=== PATIENT | female | born 1955 | race Caucasian/White ===

== ENCOUNTER 2017-04-24 14:50 | Outpatient (CLI) | payer OTHER ==
[2017-04-24 16:11] LABS: #Basophils 0.1 thou/uL (0.0-0.2); #Eosinphils 0.2 thou/uL (0.0-0.7); #Lymphocytes 3.2 thou/uL (1.20-3.40); #Monocytes 0.7 thou/uL (0.11-0.59); #Neutrophils 4.6 thou/uL (1.40-6.50); %Basophils 0.7 % (0.0-1.0); %Eosinophils 2.3 % (0.0-10.0); %Lymphocytes 36.4 % (21.0-51.0); %Monocytes 8.1 % (0.0-10.0); Mean Platelet Volume 6.8 fL (7.4-10.4); Red Blood Cell (RBC) Count 4.62 mill/uL (4.20-5.40); White Blood Cell (WBC) Count 8.7 thou/uL (4.8-10.8)
[2017-04-24 16:33] LABS: Anion Gap 12 mmol/L (10-20); BUN (Urea Nitrogen) 17 mg/dL (9.8-20.1); Calc. Creatinine Clearance 0 mL/min (70-130); Calcium 9.6 mg/dL (7.8-10.44); Carbon Dioxide 29 mmol/L (23-31); Chloride 102 mmol/L (98-107); Estimated GFR-MDRD 71
== END 2017-04-24 14:51 | disposition home or self-care (01) ==
LOC: LABBT 14:50
PROVIDERS: ATTEND Surgery
DX: Z01.812 Encounter for preprocedural laboratory examination (principal); K43.9 Ventral hernia without obstruction or gangrene
CPT/HCPCS: 80048; 85025

== ENCOUNTER 2017-04-24 16:39 | Outpatient (CLI) | payer OTHER | END 2017-04-24 16:40 | disposition home or self-care (01) | LOC: LABBT 16:39 | PROVIDERS: ATTEND Surgery | DX: Z01.812 Encounter for preprocedural laboratory examination (principal); K43.9 Ventral hernia without obstruction or gangrene ==

== ENCOUNTER 2017-04-26 09:02 | Day surgery (SDC) | payer OTHER ==
[2017-04-24 15:26] VITALS: BMI 25.6
[2017-04-26] MEDS ORDERED: Bupivacaine/Epinephrine 0.25% 30 ML VIAL ONE (10:36)
[2017-04-26] MEDS ORDERED: CEFAZOLIN/Water 2 GM/20 ML SYRINGE ONE (10:57)
[2017-04-26] MEDS ORDERED: Fentanyl 250 MCG/5 ML VIAL ONE (11:09)
[2017-04-26] MEDS ORDERED: PHENYLEPHRINE-NS 100 MCG/ML 10 ML SYRINGE ONE (11:31)
[2017-04-26] MEDS ORDERED: Ketorolac Tromethamine 30 MG/ML VIAL ONE (11:31)
[2017-04-26] MEDS ORDERED: Glycopyrrolate 0.2 MG/ML 5 ML SYRINGE ONE (11:31)
[2017-04-26] MEDS ORDERED: Propofol 200 MG/20 ML VIAL ONE (11:31)
[2017-04-26] MEDS ORDERED: Dexamethasone 20 MG/5 ML VIAL ONE (11:31)
[2017-04-26] MEDS ORDERED: Lidocaine 1% PF 5 ML VIAL ONE (11:31)
[2017-04-26] MEDS ORDERED: ePHEDrine/0.9% NaCl/PF SYRINGE 50 mg/10 ml ONE (11:31)
--- NOTE | 2017-05-01 12:40 | PDOC.OP ---
Operative Note - Operative Note Operative Note: PROCEDURE: Diagnostic laparoscopy and open repair of ventral incisional hernia with mesh DATE OF PROCEDURE: 04/26/2017 SURGEON: Kaleb Grimm M.D. PREOPERATIVE DIAGNOSES: Ventral incisional hernia POSTOPERATIVE DIAGNOSIS: Ventral incisional hernia containing preperitoneal fat only HISTORY: Patient is a 61-year-old patient with a symptomatic ventral incisional hernia in the upper midline following multilevel spinal fusion. Recommendation was made to repair this laparoscopically due to a high rate of subclinical occult adjacent ventral hernias. PROCEDURE IN DETAIL: After informed consent was obtained and appropriate preoperative antibiotics administered the patient was taken to the operating she is placed in supine position and general endotracheal anesthesia was administered. An NG tube was placed to decompress the stomach and she was prepped and draped in standard sterile fashion. Local anesthesia was infused over the skin and subcutaneous tissues in the left upper quadrant and a Veress needle placed into the abdominal cavity without difficulty. Carbon dioxide gas was insufflated to an intra-abdominal pressure 15 which the patient tolerated well the Veress needle was withdrawn and a [place] port advanced into the abdominal cavity under direct vision. There is no evidence of Veress needle or trocar injury and no adhesions in the area of the trocar. An additional dissecting trocar was placed under direct vision of laparoscope and a few omental adhesions taken down in the upper midline. However on close examination of the upper midline there was no visible hernia defect. Even with palpation in the area of the palpable hernia defects there was no break in the peritoneum and no visible defect. It was felt that perhaps the patient had a lipoma rather than a true hernia so an intraoperative ultrasound was performed. This showed fatty tissue which was clearly herniating through the fascial defect in the area of the palpable mass. It was felt that this represented preperitoneal fat only and that this could not be repaired adequately laparoscopically since it couldn't be visualized. The decision was made to repair this open with preperitoneal mesh placement. Incision was made over the defect and dissection carried down to the preperitoneal fat which was dissected free circumferentially to the level of the fascia. This was unable to be reduced through the fascial defect so was resected using LigaSure. A preperitoneal space was then created using blunt dissection and a 4.[address] mesh placed into the preperitoneal space. This was confirmed laparoscopically to be flat and in the preperitoneal space, although a small amount of the mesh was exposed centrally where the thin peritoneum had torn. The fascial defect was closed using Ethibond sutures and incorporating central strap into the closure. The ends of the straps were trimmed and the wound examined for hemostasis which was excellent. The subcutaneous tissues were reapproximated with absorbable sutures. The dissecting trochars were removed and all skin incisions closed with 4-0 Monocryl subcuticular sutures. Dermabond dressings were placed. Once the Dermabond was dry pressure dressing was placed to the epigastric hernia and secured with an abdominal binder. The patient was extubated and taken to the recovery room in good condition. Estimated blood loss was minimal. There were no complications. There were no specimens.
== END 2017-04-26 15:00 | disposition home or self-care (01) ==
LOC: SDC 09:02
PROVIDERS: ATTEND Surgery
PROC: 0WUF0JZ Supplement Abdominal Wall with Synthetic Substitute, Open Approach (ICD-10-PCS; principal; 2017-04-26)
DX: K43.2 Incisional hernia without obstruction or gangrene (principal); Z53.31 Laparoscopic surgical procedure converted to open procedure; E78.5 Hyperlipidemia, unspecified; H91.90 Unspecified hearing loss, unspecified ear; G47.8 Other sleep disorders; Z88.5 Allergy status to narcotic agent; Z88.1 Allergy status to other antibiotic agents; Z79.899 Other long term (current) drug therapy; Z90.710 Acquired absence of both cervix and uterus; Z90.49 Acquired absence of other specified parts of digestive tract; Z98.890 Other specified postprocedural states
CPT/HCPCS: C1781; J0131; J1100; J1885; J2001; J2704; J3010

== ENCOUNTER 2019-04-23 14:14 | Outpatient (CLI) | payer MEDICARE, OTHER ==
--- NOTE | 2019-04-23 15:14 | MMO ---
Left Breast MAMMO Unilat Diag DDI LT+ALIX. CLINICAL HISTORY: Patient is 63 years old and is seen for additional evaluation requested from prior study. The patient has the following family history of breast cancer: maternal grandmother, malignant (generic) and maternal aunt, malignant (generic). The patient has no personal history of cancer. The patient has a history of bilateral Explantation in September, - benign - with lift, bilateral Implants in September, - benign and bilateral Implants - benign. VIEWS: The views performed were: left mediolateral oblique spot compression with tomosynthesis; left mediolateral with tomosynthesis; left mediolateral spot compression with tomosynthesis; and left Implant displaced with tomosynthesis. FILMS COMPARED: The present examination has been compared to prior imaging studies performed at [facility] on 04/07/2019, at [facility] on 03/29/2015 and 04/03/2018, and at [facility] on 01/27/2014. This study has been interpreted with the assistance of computer-aided detection. MAMMOGRAM FINDINGS: There are scattered fibroglandular densities. Previously described abnormality does not persist with additional imaging, most consistent with superimposition of benign breast parenchyma. There are no suspicious masses, suspicious calcifications, or new areas of architectural distortion. IMPRESSION: THERE IS NO MAMMOGRAPHIC EVIDENCE OF MALIGNANCY. PREVIOUSLY DESCRIBED ABNORMALITY DOES NOT PERSIST WITH ADDITIONAL IMAGING, MOST CONSISTENT WITH SUPERIMPOSITION OF BENIGN BREAST PARENCHYMA. A ROUTINE FOLLOW-UP MAMMOGRAM IN 1 YEAR IS RECOMMENDED. THE RESULTS OF THIS EXAM WERE SENT TO THE PATIENT. ACR BI-RADS Category 2 - Benign finding MAMMOGRAPHY NOTE: 1. A negative mammogram report should not delay a biopsy if a dominant of clinically suspicious mass is present. 2. Approximately 10% to 15% of breast cancers are not detected by mammography. 3. Adenosis and dense breasts may obscure an underlying neoplasm. Reported by: MARGA CANO MD Electonically Signed: [id number]
== END 2019-04-23 14:15 | disposition home or self-care (01) ==
LOC: BICMAMMO 14:14
PROVIDERS: ATTEND Student in an Organized Health Care Education/Training Program
DX: N64.89 Other specified disorders of breast (principal); Z98.82 Breast implant status
CPT/HCPCS: 77065; G0279

== ENCOUNTER 2020-04-11 07:59 | Outpatient (CLI) | payer MEDICARE ==
--- NOTE | 2020-04-11 08:33 | MMO ---
Bilateral MAMMO Bilat Screen DDI+ALIX. CLINICAL HISTORY: Patient is 64 years old and is seen for screening. The patient has the following family history of breast cancer: maternal grandmother, malignant (generic) and maternal aunt, malignant (generic). The patient has no personal history of cancer. The patient has a history of bilateral Explantation in September, - benign - with lift, bilateral Implants in September, - benign and bilateral Implants - benign. VIEWS: The views performed were: bilateral craniocaudal with tomosynthesis; bilateral mediolateral oblique with tomosynthesis; and bilateral Implant displaced. FILMS COMPARED: The present examination has been compared to prior imaging studies performed at [facility] on 04/07/2019, and at [facility] on 03/29/2015, 04/03/2018 and 04/23/2019. This study has been interpreted with the assistance of computer-aided detection. MAMMOGRAM FINDINGS: There are scattered fibroglandular densities. There are no suspicious masses, suspicious calcifications, or new areas of architectural distortion. Normal implants are present. IMPRESSION: THERE IS NO MAMMOGRAPHIC EVIDENCE OF MALIGNANCY. A ROUTINE FOLLOW-UP MAMMOGRAM IN 1 YEAR IS RECOMMENDED. THE RESULTS OF THIS EXAM WERE SENT TO THE PATIENT. ACR BI-RADS Category 1 - Negative MAMMOGRAPHY NOTE: 1. A negative mammogram report should not delay a biopsy if a dominant of clinically suspicious mass is present. 2. Approximately 10% to 15% of breast cancers are not detected by mammography. 3. Adenosis and dense breasts may obscure an underlying neoplasm. Reported by: EL FUENTES MD Electonically Signed: [id number]
== END 2020-04-11 08:00 | disposition home or self-care (01) ==
LOC: BICMAMMO 07:59
PROVIDERS: ATTEND Family Medicine
DX: Z12.31 Encounter for screening mammogram for malignant neoplasm of breast (principal); Z91.89 Other specified personal risk factors, not elsewhere classified; Z98.82 Breast implant status; Z80.3 Family history of malignant neoplasm of breast
CPT/HCPCS: 77063; 77067

== ENCOUNTER 2021-04-14 14:42 | Outpatient (CLI) | payer MEDICARE, OTHER | END 2021-04-14 14:43 | disposition home or self-care (01) | LOC: BICMAMMO 14:42 | PROVIDERS: ATTEND Student in an Organized Health Care Education/Training Program | DX: Z12.31 Encounter for screening mammogram for malignant neoplasm of breast (principal); Z98.890 Other specified postprocedural states; Z80.3 Family history of malignant neoplasm of breast | CPT/HCPCS: 77063; 77067 ==

== ENCOUNTER 2022-04-25 15:21 | Outpatient (CLI) | payer MEDICARE, OTHER | END 2022-04-25 15:22 | disposition home or self-care (01) | LOC: BICMAMMO 15:21 | PROVIDERS: ATTEND Family Medicine | DX: Z12.31 Encounter for screening mammogram for malignant neoplasm of breast (principal); Z80.3 Family history of malignant neoplasm of breast; Z91.89 Other specified personal risk factors, not elsewhere classified | CPT/HCPCS: 77063; 77067 ==

== ENCOUNTER 2022-06-22 15:17 | Outpatient (CLI) | payer MEDICARE, OTHER | END 2022-06-22 15:18 | disposition home or self-care (01) | LOC: RAD 15:17 | PROVIDERS: ATTEND Nurse Practitioner Family | DX: S99.922A Unspecified injury of left foot, initial encounter (principal) ==